=== PATIENT | male | born 1975 | race Caucasian/White ===

== ENCOUNTER 2017-01-29 13:14 | Emergency (ER) | payer SELFPAY ==
--- NOTE | 2017-01-30 23:16 | ER ---
ADMIT: 01/29/2017 RM/LOC: ER [facility] MR#: [id number] [address] [place] [address] [place], [place] [address] PRIMITIVO HERRERA [address] [place] [address] Emergency Room Report SEX: M AGE: 41 : 1975 DATE: 01/29/2017 ADDENDUM: See T-sheet for complete H and P. HISTORY OF PRESENT ILLNESS: The patient is a 41-year-old male with a previous history of coronary artery disease, type 2 diabetes, which is controlled with oral medications; hypertension, and hyperlipidemia. He has known history of coronary artery disease with previous coronary bypass grafting and stent placement. His most recent stents were done in November of this year. The patient comes in complaining of chest pain in the center of his chest that is worse when it was started and was worse when he was raking just earlier today and lifting some bags of fertilizer. He states it is worse with certain movements and was worse with activity, but on further questioning, he was able to walk without difficulty. It is more when he was using his upper extremities and raking. His physical exam was unremarkable other than he has some exquisite tenderness with palpation of his well-healed midline chest scar from his previous coronary artery bypass graft. Because he does have a significant coronary artery disease history, we did do a chest pain routine, and he was given aspirin here, but no nitroglycerin because he took a nitroglycerin prior to arrival with no change in his symptoms. His first EKG and repeat one later in his stay were both normal. CBC, chemistries, and cardiac enzymes were normal as was his chest x-ray. I did get records from his admission last week to [facility] in [place] for the same symptoms or very similar symptoms. I reviewed those records from his workup and it was determined that his results there were normal, and he was not having any acute chest pain that required any intervention. There is a history of some possible pseudoseizures and malingering based on my review of his chart. At this point, I think it is extremely unlikely that the patient has any symptoms related to his coronary artery disease directly. I think he could be having some pain in his chest wall from his previous surgery. He is already on aspirin and Brilinta, and our plan at this time is to keep him on his routine medications. He is told that he can return to the ER for any other concerning symptoms. Otherwise, he is to follow up with his regular physician. DIAGNOSIS: Atypical chest pain. Barron Celaya MD/ manuel JOB #: [id number] CC: Timoteo Flor MD, Attending Physician Robert Collins MD, Family Physician
== END 2017-01-29 15:40 | disposition home or self-care (01) ==
LOC: ER 13:14
DX: R07.89 Other chest pain (principal); E78.5 Hyperlipidemia, unspecified; I10 Essential (primary) hypertension; Z95.1 Presence of aortocoronary bypass graft; Z86.79 Personal history of other diseases of the circulatory system; Z90.89 Acquired absence of other organs; Z88.8 Allergy status to other drugs, medicaments and biological substances; Z79.82 Long term (current) use of aspirin

== ENCOUNTER 2017-01-29 18:30 | Emergency (ER) | payer SELFPAY ==
--- NOTE | 2017-01-30 19:12 | ER ---
ADMIT: 01/29/2017 RM/LOC: ER [facility] MR#: [id number] [address] [facility] [address] [place], [place] [address] PRIMITIVO HERRERA [address] [place] [address] Emergency Room Report SEX: M AGE: 41 : 1975 DATE: 01/29/2017 Patient is a 41-year-old male, second visit to ED today for chest discomfort. Recently discharged from [facility] for chest pain. The patient has had 3 heart cath since the of the year. Most recent intervention was in November. He has had a total of 5 stents, 2 bypass in 2014, complicated by stroke and subsequent left carotid endarterectomy in September 2015. Exam remarkable for anxious, nontoxic, afebrile male, slightly tender to palpation at sternal border. EKG sinus rhythm without ST-T or Q-wave change, unchanged from previous today. Chest x-ray, no acute findings. Hemoglobin 13.8, lactic 1.2, CRP less than 0.29, lipase 194, troponin less than 0.015. BNP 100, dimer 0.19. The patient was given Toradol 30 mg IV push, GI cocktail with minimal improvement. Advised hydrocodone 5/325 as needed #20 plus 6. Heating pad followed by ice to chest, and follow up [facility] or Dr. Erazo next week. Clifford Oseguera MD/ bridgetl JOB #: [id number] CC: Timoteo Flor MD, Attending Physician Robert Collins MD, Family Physician Wellington Erazo MD
== END 2017-01-29 20:55 | disposition home or self-care (01) ==
LOC: ER 18:30
DX: R07.2 Precordial pain (principal); I25.10 Atherosclerotic heart disease of native coronary artery without angina pectoris; I25.2 Old myocardial infarction; E11.9 Type 2 diabetes mellitus without complications; I10 Essential (primary) hypertension; E78.5 Hyperlipidemia, unspecified; K21.9 Gastro-esophageal reflux disease without esophagitis; F41.9 Anxiety disorder, unspecified; N40.0 Benign prostatic hyperplasia without lower urinary tract symptoms; Z95.1 Presence of aortocoronary bypass graft; Z86.73 Personal history of transient ischemic attack (TIA), and cerebral infarction without residual deficits; Z90.49 Acquired absence of other specified parts of digestive tract; Z88.8 Allergy status to other drugs, medicaments and biological substances; Z79.82 Long term (current) use of aspirin; Z79.84 Long term (current) use of oral hypoglycemic drugs; Z79.899 Other long term (current) drug therapy

== ENCOUNTER 2017-04-09 22:02 | Inpatient (IN) | payer SELFPAY ==
[~2017-04-09] VITALS: Ht 175.3 cm; Wt 80.1 kg
--- NOTE | 2017-04-10 06:58 | ER ---
ADMIT: 04/09/2017 RM/LOC: 430 [facility] MR#: [id number] [address] [address] PRIMITIVO HERRERA [address] [place] [address] Emergency Room Report SEX: M AGE: 41 : 1975 DATE: 04/09/2017 HISTORY OF PRESENT ILLNESS: The patient is a 41-year-old male with family history of cardiac problems and past medical history of stroke; left carotid endarterectomy; hypertension; and coronary artery disease with double coronary artery bypass graft and 4 cardiac stents, the last one in November 2016, came to the ER with chief complaint of anterior chest pain for the last 4 hours, which started while the patient was sitting and resting and states that the pain is very similar to the previous pain he had during the heart attack and the patient states that the pain is pressure like, severe. The patient states last week, he had shortness of breath and he was hospitalized with a diagnosis of right pulmonary emboli in [facility] in [place], and he was on Xarelto and yesterday, he was discharged home. The patient denies any shortness of breath at the moment. The patient states he tried multiple doses of nitroglycerin sublingual at home, which did not change the pain. In the ER, the patient was in moderate to severe distress. The patient was put on monitor. EKG did not show any ST or T changes or Q-waves or arrhythmia. EKG was just the sinus tachycardia. PHYSICAL EXAMINATION: VITAL SIGNS: The patient has systolic blood pressure of 170s, with heart rate of 115, and respiratory rate is 18 to 20, the patient is afebrile, O2 saturations are 100% on room air. HEENT/NECK: Did not show any bruit on the neck. Trachea midline. No cyanosis. CHEST: Clear bilaterally without any crackles. HEART: Normal heart sounds without any S3 or S4, gallops, or murmurs. ABDOMEN: Soft, without any pulsating mass. EXTREMITIES: There is no swelling of the extremities and no tenderness in the extremities. The rest of the physical exam is noncontributory and negative. ADMIT: 04/09/2017 RM/LOC: 430 [facility] MR#: [id number] 2620 [facility] [address] [place] [phone] [place] [address] Emergency Room Report SEX: M AGE: 41 : 1975 EMERGENCY ROOM COURSE: The patient received aspirin 324 mg p.o. in the ER. The patient received 3 doses of nitroglycerin sublingual 0.4 mg, which did not change the pain at all. The patient received also GI cocktail, 30 mL which also did not change the pain. Pain was moderately controlled with morphine IV. Chest x-ray was noncontributory and negative. The repeat EKG after the 3 doses of the nitroglycerin sublingual, was also negative for any ST or T changes or Q-waves or arrhythmia. Cardiac enzymes, troponin I was negative. The rest of the lab was noncontributory except for elevated LDH at 264. Dr. Huynh was consulted, Cardiology, and he states cardiac causes are not at the top of our differentials at the moment. Internal Medicine was consulted, and the patient was admitted for further followups and treatments of the chest pain, rule out acute coronary syndrome. Pepe Grullon MD/ manuel JOB #: [id number] CC: Jamee Manriquez MD, Attending Physician Jamee Manriquez MD, Family Physician
--- NOTE | 2017-04-11 13:23 | HP ---
ADMIT: 04/09/2017 RM/LOC: 430 [facility] MR#: [id number] 2620 [facility] [address] [place], [place] [address] CARROLL HERRERA [address] [place] [address] History and Physical SEX: M AGE: 41 : 1975 DATE OF SERVICE: CHIEF COMPLAINT: Chest pain. HISTORY OF PRESENT ILLNESS: Carroll is a 41-year-old white male who has an extensive cardiac history, who was admitted to [facility] with chest pain. He presented to the emergency room at approximately 2200. He was having pain in his left anterior chest radiating to the back that was similar to his previous heart pain. He describes it as moderate to severe and as a pressure sensation. He recently was hospitalized on 04/05/2017 in [place] where he was found to have bilateral small pulmonary emboli. He was discharged on Xarelto 15 mg b.i.d. among his other medications and has been hindu about taking things. Unfortunately, he developed this episode of discomfort, he was concerned, so he came into the emergency room. He primarily gets his care in [place] as he works in [employer] and previously had lived there. He sees a Princess Flores APRN, at [facility] on a routine basis. He came to [place] because he had recently moved to [place] and in this situation he was concerned enough and worried about his cardiovascular status. Thus, he went to the closest emergency room, which would be our facility. He is admitted to me as city call physician. On admission, he denied feeling short of breath, but he was little anxious because of his history. His blood pressure was elevated at that time at 165/85, and he was a little tachycardic at 112. In the emergency room, initial enzymes and EKGs were normal. He was given aspirin 324 mg, sublingual nitroglycerin x3 with no change, morphine 4 mg IV and again with no change. Continued assessments were performed with at least 3 additional doses of morphine 4 mg, which really barely touched things. Due to his cardiovascular history, it was elected to admit and evaluate until we could determine what the next step should be. He is admitted to myself as mentioned as city call physician. His blood pressure on leaving the emergency room was 137/92, pulse 84, respirations 18, and saturation level is 98%. His cardiovascular history is extensive and will be outlined below. He does have real disease. Not only as he had CABG and multiple stents, he has also had a carotid endarterectomy. The pulmonary emboli were new, but he does have a history of DVT. PAST MEDICAL HISTORY: History of DVT in 2005, pulmonary emboli April 05 with bilateral small emboli found in [place], started on Xarelto 15 mg b.i.d. and discharged on 04/09/2017. Diabetes. Hypertension. Coronary artery disease, status post CABG x2 vessels (VERDE to LAD, and IKE to right PDA in 2014) with multiple stentings afterwards in [place], PTCA of the ramus and a drug-eluting stent in the circumflex on 10/31/2016, heart cath and PTCA with drug-eluting stent of the RCA on 11/17/2016, cardiac cath with intravascular ultrasound on 11/26/2016 showing patent vascular graft of VERDE to LAD, and IKE to right PDA, left main 50% with stent in circumflex and RCA that was patent and felt that redo CABG would likely not be of benefit and to monitor and treat symptomatically with the plan. Last echo 01/17/2017 with EF 55%. Left carotid endarterectomy. Orthostatic hypotension in the past with likely medications that has resolved, appendectomy. Depression. Hyperlipidemia. ?CVA although MRI of the head I believe in [place] was negative at one point, although I do not ADMIT: 04/09/2017 RM/LOC: 430 [facility] MR#: [id number] [address] [address] CARROLL HERRERA [address] [place] [address] History and Physical SEX: M AGE: 41 : 1975 see this record just reports in the chart. MEDICATIONS: On admission after his recent discharge from [place] include: 1. Sennosides and docusate sodium daily. 2. Lisinopril 5 mg daily. 3. Antivert 12.5 t.i.d. p.r.n. 4. Calcium carb daily. 5. Norvasc 2.5 daily. 6. Xarelto 15 b.i.d. as a load. 7. Metformin 500 b.i.d. 8. Tylenol 500, 2 pills b.i.d. 9. Ranexa ER 500 mg, 2 b.i.d. 10.Ambien 5 mg at bedtime p.r.n. 11.Ivabradine 5 mg b.i.d. 12.[place] 5/325, 1 every 4 h p.r.n. 13.Vitamin D3 1000 international units daily. 14.Tamsulosin 0.4 daily. 15.Metoprolol 200 b.i.d. 16.Aspirin 81 mg daily. 17.Nitroglycerin p.r.n. 18.Protonix 20 mg daily. 19.Cymbalta 60 mg at bedtime. 20.Melatonin 5 mg at bedtime. 21.Tramadol 50 mg, 2 t.i.d. 22.Neurontin 400 t.i.d. 23.Colace 100 b.i.d. 24.Lipitor 80 mg daily. ALLERGIES: WITH LYRICA CAUSING SEIZURES AND DILAUDID WITH PRURITUS. SOCIAL HISTORY: He is single with a girlfriend, who is his significant other. Works at [employer]. Nondrinker and nonsmoker at this time. Hypertension in his mother. Heart disease in his mother at an older age but his father started having stents at age 28. REVIEW OF SYSTEMS: Chest pain. Frustrated that he cannot find anything. He has been now to facilities in [place] and now our facility due to his concern. At first, he was very guarded, and felt that I was a psychiatrist and was frustrated that things were not being looked into. After we talked a little while, he did apologize as he was quite frustrated. PHYSICAL EXAMINATION: VITAL SIGNS: As above. GENERAL: This is a well-developed, well-nourished, white male, currently lying in bed. SKIN: Warm and dry with no lesions or rashes. HEENT: Normocephalic, atraumatic. Anicteric. Mucous membranes are moist. NECK: Supple. LUNGS: Diminished, but clear. ADMIT: 04/09/2017 RM/LOC: 430 [facility] MR#: [id number] [address] [address] SHARON CARROLL BETO [address] [place] [address] History and Physical SEX: M AGE: 41 : 1975 CARDIOVASCULAR: Distant and regular. ABDOMEN: Soft. /RECTAL: Deferred IMPRESSION: 1. Chest pain. 2. Heart disease status post coronary artery bypass graft and multiple interventions. 3. Peripheral vascular disease with left carotid endarterectomy. 4. Hypertension. 5. Hyperlipidemia by report. 6. Diabetes. DISCUSSION: I feel his frustration. He has very real disease that is pretty malignant in nature but the fact that things are stable is a good sign. I am glad that the serial enzymes have been negative. His blood pressure has been relatively under control, although this morning, he did not get his metoprolol ordered, so his blood pressure and heart rate were up a little bit, but this is understandable. He voiced a desire to go to [facility] for further evaluation. I discussed with him that would be fine. I will discuss with providers there. I think it is reasonable to have him go down acutely due to the concerns with his issues and have someone look at him with some fresh eyes. Sometimes when we have thought about what we think is going on, we might miss the true abnormality. Especially in someone with multiple unusual things that have a tendency to look like drug-seeking behavior. I assured him that things might not be cardiac and it could be something else, and he should be glad about that. For this reason, he will be transferred to Dr. Oneill at [facility] who graciously accepts him on the weekend to evaluate these things. He will be our opinion to just get to the bottom of things. I think he would be worthwhile for a Gastroenterology evaluation, which is not available here in [place]. Need to make sure it is not a gastritis or some other issue. He is currently taking Protonix at 20 mg. He is not on any medications that potentially would exacerbate things other than the aspirin. Once things are evaluated, then they can look for secondary causes of his symptoms. Hopefully, this will be beneficial to him. When he is dismissed, he will follow up with his primary care in [place]. ADMIT: 04/09/2017 RM/LOC: 430 [facility] MR#: [id number] [address] [address] [place] [address] History and Physical SEX: M AGE: 41 : 1975 PLAN: 1. To [facility]. 2. Send information for them. 3. Reviewed medication. 4. See chart. Jamee Manriquez MD/ manuel JOB #: [id number] CC: Jamee Manriquez, Attending Physician Jamee Manriquez, Family Physician Brandon Oneill MD [facility]9 [facility] [address] [place], [place] [id number]
--- NOTE | 2017-04-27 14:15 | CO ---
ADMIT: 04/09/2017 RM/LOC: 430 [facility] MR#: [id number] [address] [facility] [address] [place], [place] [address] PRIMITIVO HERRERA [address] [place] [address] Consultation SEX: M AGE: 41 : 1975 DATE OF CONSULTATION: 04/10/2017 ATTENDING PHYSICIAN: Jamee Manriquez CONSULTING PHYSICIAN: Tima Huynh MD REASON FOR CONSULTATION: 1. Chest pain. 2. History of coronary artery disease. HISTORY OF PRESENT ILLNESS: Mr. Herrera is a 41-year-old white male, whom we are asked to consult at the request of Dr. Manriquez for the problem of chest pain. His chief complaint is chest pain. He has a complex history of coronary artery disease. He presented to the ER last night with complaint of chest pain for 4 hours. He recently was hospitalized earlier in the week at [facility] for shortness of breath and was actually discharged on , was found to have a PE, and started on Xarelto. He has been feeling stable from that standpoint, but now he is having persistent chest pain at rest, radiating down to the arm. He notes that when the morphine wears off, it gets worse. That seems to be what helps it. It is fairly constant. It is not made worse with exertion or activity. He has had multiple coronary interventions and caths for evaluation of this chest pain, and that will be discussed in the past medical history. PAST MEDICAL HISTORY: 1. Coronary artery disease with history of multivessel bypass in 2014, VERDE to LAD and IKE to RPDA. 2. History of PCI to the distal RCA, the circumflex and the ramus. Most recent heart catheterization was performed on November 26, 2016. At that time, it was an IVUS to the left main with 50% disease. Catheterization prior to that was done on November 17, 2016, which noted PCI to his circumflex and ramus were patent and the IKE to the RCA was occluded and at that time, PCI to his RCA was performed using a drug-eluting stent. 3. Carotid artery disease with history of endarterectomy. MEDICATIONS: Currently include: 1. Ranexa 500 mg p.o. b.i.d. 2. Aspirin 81 mg a day. 3. Glucophage 500 mg b.i.d. 4. Lipitor 40 mg at bedtime. 5. Melatonin 3 mg a day. 6. Norvasc 2.5 a day. 7. Protonix 40 a day. 8. Ranexa 500 b.i.d. 9. Tylenol as directed. 10.Ultram 100 mg t.i.d. 11.Xarelto 15 mg b.i.d. 12.Zestril 5 mg a day. ADMIT: 04/09/2017 RM/LOC: 430 [facility] MR#: [id number] [address] [address] [place] [address] Consultation SEX: M AGE: 41 : 1975 ALLERGIES: PREGABALIN. FAMILY HISTORY: Father with known history of coronary disease. SOCIAL HISTORY: He is a nonsmoker. He works at [employer]. He is . and he recently moved [place] he states. REVIEW OF SYSTEMS: Full 10-point review of systems was obtained and deemed to be negative except for the pertinently dictated positives in the HPI. PHYSICAL EXAMINATION: VITAL SIGNS: His blood pressure is 149/114 with pulse of 99, temp 96.3, his weight today is 176 pounds. GENERAL: He is a pleasant well-nourished, well-developed white male. He is somewhat distressed because of the pain he states. NECK: Shows brisk carotid upstrokes. No JVD. CHEST: Clear. HEART: Regular. ABDOMEN: Soft. EXTREMITIES: No cyanosis, clubbing, or edema. MUSCULOSKELETAL: Normal. NEUROLOGIC: Normal. SKIN: [place], warm, and dry with scar consistent with median sternotomy. LABORATORY AND X-RAY DATA: EKG shows sinus rhythm with no evidence of ST or T- wave segment changes. CK-MB and troponin are all negative. Chest x-ray shows no acute cardiopulmonary abnormalities. Potassium is 2.6, creatinine 0.9. Magnesium is 2.2. His white blood cell count is 6.3 with a hemoglobin of 13.3 and a platelet count of 282,000. ASSESSMENT AND PLAN: 1. Chest pain. ADMIT: 04/09/2017 RM/LOC: 430 [facility] MR#: [id number] [address] [address] PRIMITIVO HERRERA [address] [place] [address] Consultation SEX: M AGE: 41 : 1975 2. Coronary artery disease. 3. History of multivessel bypass and PVI. 4. History of peripheral vascular disease status post carotid endarterectomy. 5. Diabetes. There is no evidence of ischemia on EKG or his lab. Recent IVUS and FFR of his left main coronary artery were stable and patent. He has a patent VERDE to LAD. PCI to circumflex and his ramus and his RCA were patent. His IKE is known to be occluded. We will increase his Ranexa and start him on a nitroglycerin drip and monitor response to this. Continue to repeat ischemic workup. Consider an echocardiogram tomorrow for limited wall motion evaluation. Tima Huynh MD/ manuel JOB #: [id number] CC: Jamee Manriquez, Attending Physician Jamee Manriquez, Family Physician
--- NOTE | 2017-06-09 08:43 | DS ---
ADMIT: 04/09/2017 RM/LOC: 430 [facility] MR#: [id number] 2620 [facility] [address] [place] [address] CARROLL HERRERA [address] [place] [address] Discharge Summary SEX: M AGE: 41 : 1975 ADMISSION DATE: 04/09/2017 DISCHARGE DATE: 04/10/2017 DIAGNOSES: 1. Chest pain with concerning history. 2. Coronary artery disease. 3. Recent pulmonary emboli. 4. Hyperlipidemia. PROCEDURES: None. REASON FOR HOSPITALIZATION: Chest pain. See dictated H and P. LABORATORY AND X-RAY DATA: With a white count of 6.3, hemoglobin 13.3, platelet count 282. Sodium 142, potassium 3.6, chloride 111, CO2 24, BUN 14, creatinine 0.9. CK-MBs were negative. Chest x-ray was negative. COURSE IN HOSPITAL: Carroll was admitted to myself as city call physician. He refused all of his health care in [place] but came to [place] at this point. Evaluation was unremarkable but his history was concerning. For this reason, I did have Cardiology see him. That did not go over very well. I subsequently contacted [facility] and the physician who was taking admissions. I explained the situation that he really needs to have a good once over and possibly a gastroenterology evaluation to put issues to rest. He agreed and accepted him in transfer. DISCHARGE MEDICATIONS: Discharge medications are the same as admission. He will follow up with [facility] once things are done. Jamee Manriquez MD/ robert JOB #: [id number] CC: Jamee Manriquez MD, Attending Physician Jamee Manriquez MD, Family Physician Brandon Oneill MD
== END 2017-04-10 13:42 | disposition short-term general hospital (02) | DRG 313 ==
LOC: ER 22:02 → 4PCU 22:35
PROVIDERS: ADMIT Internal Medicine
DX: R07.9 Chest pain, unspecified (principal); I25.10 Atherosclerotic heart disease of native coronary artery without angina pectoris; I10 Essential (primary) hypertension; I73.9 Peripheral vascular disease, unspecified; E11.9 Type 2 diabetes mellitus without complications; F32.9 Major depressive disorder, single episode, unspecified; E78.5 Hyperlipidemia, unspecified; Z79.84 Long term (current) use of oral hypoglycemic drugs; Z82.49 Family history of ischemic heart disease and other diseases of the circulatory system; Z86.73 Personal history of transient ischemic attack (TIA), and cerebral infarction without residual deficits; Z95.1 Presence of aortocoronary bypass graft; Z86.718 Personal history of other venous thrombosis and embolism; Z95.5 Presence of coronary angioplasty implant and graft; Z86.711 Personal history of pulmonary embolism